=== PATIENT | female | born 1975 | race Caucasian/White ===

== ENCOUNTER 2018-05-13 13:42 | Emergency (ER) | payer MEDICAID ==
[~2018-05-13] VITALS: Ht 162.6 cm; Wt 118.6 kg
[2018-05-13 13:51] VITALS: Ht 162.6 cm; Wt 118.6 kg
[2018-05-13] MEDS ORDERED: NEURONTIN 300300 MG PO (13:53)
[2018-05-13] MEDS ORDERED: BUTRANS1 EAC1 TRANSDERM (13:53)
[2018-05-13] MEDS ORDERED: GLUCOPHAGE500 MG PO (13:53)
[2018-05-13] MEDS ORDERED: TOPAMAX25 MG PO (13:53)
[2018-05-13] MEDS ORDERED: VIBRAMYCIN 100100 MG PO (16:32)
[2018-05-13] MEDS ORDERED: TYLENOL W/CODEI1 TAB PO (16:32)
[2018-05-13 16:39] VITALS: BP 142/87
== END 2018-05-13 16:40 | disposition home or self-care (01) ==
LOC: D.ER 13:42
DX: L03.116 Cellulitis of left lower limb (principal); S70.362A Insect bite (nonvenomous), left thigh, initial encounter; W57.XXXA Bitten or stung by nonvenomous insect and other nonvenomous arthropods, initial encounter; Y93.89 Activity, other specified; Y92.019 Unspecified place in single-family (private) house as the place of occurrence of the external cause

== ENCOUNTER 2018-08-02 14:21 | Emergency (ER) | payer MEDICAID ==
[~2018-08-02] VITALS: Ht 162.6 cm; Wt 118.6 kg
[~2018-08-02 14:21] MED LIST: BUTRANS1 EAC1 TRANSDERM; GLUCOPHAGE500 MG PO; NEURONTIN 300300 MG PO; TOPAMAX25 MG PO; TYLENOL W/CODEI1 TAB PO; VIBRAMYCIN 100100 MG PO
[2018-08-02 14:26] VITALS: Ht 162.6 cm; Wt 118.6 kg
[2018-08-02 15:12] LABS: HCG URINE NEGATIVE (NEGATIVE)
[2018-08-02 16:56] LABS: APPEARANCE CLOUDY (CLEAR); BILIRUBIN NEGATIVE (NEGATIVE); COLOR YELLOW (YELLOW); GLUCOSE NEGATIVE (NEGATIVE); KETONE NEGATIVE (NEGATIVE); NITRITE POSITIVE (NEGATIVE); PROTEIN TRACE mg/dL (NEGATIVE); SPECIFIC GRAVITY 1.025 (1.005-1.020); UROBILINOGEN NORMAL (NORMAL)
[2018-08-02 17:00] LABS: BACTERIA MANY /hpf (NONE SEEN); WHITE CELLS - URINE >50 /hpf (0-5)
[2018-08-02] MEDS ORDERED: PHENAZOPYRIDIN200 MG PO (17:29)
[2018-08-02] MEDS ORDERED: BACTRIM DS TABL1 TAB PO (17:29)
[2018-08-02 17:45] VITALS: BP 120/77
== END 2018-08-02 17:46 | disposition home or self-care (01) ==
LOC: D.ER 14:21
PROVIDERS: Family Medicine; Nurse Practitioner Family
DX: N39.0 Urinary tract infection, site not specified (principal); E11.9 Type 2 diabetes mellitus without complications

== ENCOUNTER 2019-02-01 11:06 | Emergency (ER) | payer MEDICAID ==
[~2019-02-01] VITALS: Ht 162.6 cm; Wt 115.0 kg
[~2019-02-01 11:06] MED LIST changes: +BACTRIM DS TABL1 TAB PO; +PHENAZOPYRIDIN200 MG PO
[2019-02-01 11:28] VITALS: Ht 162.6 cm; Wt 115.0 kg
[2019-02-01] MEDS ORDERED: VOLTAREN75 MG PO (13:45)
[2019-02-01] MEDS ORDERED: BACLOFEN20 M1 PO (13:45)
[2019-02-01 14:17] VITALS: BP 144/58
== END 2019-02-01 14:18 | disposition home or self-care (01) ==
LOC: D.ER 11:06
DX: M25.511 Pain in right shoulder (principal); V43.62XA Car passenger injured in collision with other type car in traffic accident, initial encounter; Y93.89 Activity, other specified; Y92.410 Unspecified street and highway as the place of occurrence of the external cause

== ENCOUNTER 2019-10-07 01:24 | Emergency (ER) | payer MEDICAID ==
[~2019-10-07] VITALS: Ht 162.6 cm; Wt 118.8 kg
[~2019-10-07 01:24] MED LIST changes: +BACLOFEN20 M1 PO; +VOLTAREN75 MG PO
[2019-10-07 01:28] VITALS: Ht 162.6 cm; Wt 118.8 kg
[2019-10-07] MEDS ORDERED: SCOT-TUSSI10 MG/5 ML PO (01:52)
[2019-10-07] MEDS ORDERED: ZPAK PO (01:52)
[2019-10-07 02:26] VITALS: BP 137/76
== END 2019-10-07 02:27 | disposition home or self-care (01) ==
LOC: D.ER 01:24
DX: R05 Cough (principal); R68.89 Other general symptoms and signs; E11.9 Type 2 diabetes mellitus without complications; Z79.84 Long term (current) use of oral hypoglycemic drugs; I10 Essential (primary) hypertension; F32.9 Major depressive disorder, single episode, unspecified